=== PATIENT | female | born 1995 | race Caucasian/White ===

== ENCOUNTER 2020-06-11 17:04 | Emergency (ER) | payer BC ==
[~2020-06-11] VITALS: Ht 170.2 cm; Wt 59.0 kg
[2020-06-11 17:05] VITALS: Ht 170.2 cm; Wt 59.0 kg
[2020-06-11 17:56] VITALS: BP 133/85
== END 2020-06-11 18:07 | disposition home or self-care (01) ==
LOC: ED 17:04
DX: T78.40XA Allergy, unspecified, initial encounter (principal); X58.XXXA Exposure to other specified factors, initial encounter
CPT/HCPCS: J7512